=== PATIENT | male | born 1985 | race Hispanic/Latino ===

== ENCOUNTER 2017-07-30 06:46 | Emergency (ER) | payer OTHER ==
[~2017-07-30] VITALS: Ht 167.6 cm; Wt 90.7 kg
== END 2017-07-30 07:36 | disposition short-term general hospital (02) ==
LOC: ER 06:46
DX: R69 Illness, unspecified (principal)

== ENCOUNTER → 2017-08-05 | Outpatient (CLI) | payer OTHER ==
--- NOTE | 2017-08-05 12:38 | Diagnostic Imaging Report ---
PROCEDURE:X-RAY ABDOMEN - KUB COMPARISON:04/23/17 INDICATIONS:CALCULI OF KIDNEY FINDINGS: There is a non-obstructed bowel-gas pattern. 3 mm hyperdensity overlying the right renal shadow. There are no acute osseous abnormalities. The lung bases are clear. CONCLUSION: 3 mm hyperdensity overlying the right renal shadow, could represent a renal calculus. Non obstructive bowel gas pattern. Dictated by: Gerardo Santizo M.D. on 08/05/2017 at 12:46 Electronically approved by: Gerardo Santizo M.D. on 08/05/2017 at 12:46
== END ==
LOC: RAD 11:49
PROVIDERS: ATTEND Urology
DX: N20.0 Calculus of kidney (principal)
CPT/HCPCS: 74000

== ENCOUNTER → 2017-11-15 | Outpatient (CLI) | payer OTHER ==
--- NOTE | 2017-11-15 13:09 | Diagnostic Imaging Report ---
PROCEDURE:X-RAY ABDOMEN - KUB COMPARISON:Patients [facility], DX, ABDOMEN-1VIEW (KUB), 08/05/2017, 11:50. INDICATIONS:CALCULUS OF THE KIDNEY FINDINGS: Bowel: Bowel gas pattern is normal. No dilated bowel loops. Calcifications: Punctate calcification over the right renal shadow measures about 3 mm and is stable. No calcifications over the left renal shadow or along expected course of the ureters. No pelvic phleboliths. Bones: Normal. CONCLUSION: Stable calcification over the right renal shadow. No calcifications elsewhere. Dictated by: Sivakumar Koroma M.D. on 11/15/2017 at 13:10 Electronically approved by: Sivakumar Koroma M.D. on 11/15/2017 at 13:10
== END ==
LOC: RAD 09:48
PROVIDERS: ATTEND Urology
DX: N20.0 Calculus of kidney (principal)
CPT/HCPCS: 74018

== ENCOUNTER 2017-12-09 17:42 | Emergency (ER) | payer OTHER ==
[~2017-12-09] VITALS: Ht 170.2 cm; Wt 103.9 kg
--- OUTSIDE RECORDS SUMMARY | 2017-12-09 17:45 | XMS REPORT ---
Author Author [facility] Address Unknown Phone Unavailable Care Team Providers Care Physical Therapy Aide Name Role Phone MEREDITH SIFUENTES Unavailable Unavailable Problems This patient has no known problems. Allergies, Adverse Reactions, Alerts This patient has no known allergies or adverse reactions. Medications This patient has no known medications. Results Test Description Test Time Test Comments Text Results Atomic Results Result Comments ABDOMEN-1VIEW (KUB) [facility] [address] [address] Patient Name: TIANNA CHOWDHURY MR #: [id number] : 1985 Age/Sex: 32/M Req #: [id number] Adm Physician: Ordered by: MEREDITH SIFUENTES MD Report #: [id number] Location: [facility] Room/Bed: Procedure: [id number] [id number] DX/ABDOMEN-1VIEW (KUB) Exam Date: 11/15/17 Exam Time: 0940 REPORT STATUS: Signed PROCEDURE: X-RAY ABDOMEN - KUB COMPARISON: [facility], , ABDOMEN-1VIEW (KUB), 2016, 11:50. INDICATIONS: CALCULUS OF THE KIDNEY FINDINGS: Bowel: Bowel gas pattern is normal. No dilated bowel loops. Calcifications: Punctate calcification over the right renal shadow measures about 3 mm and is stable. No calcifications over the left renal shadow or along expected course of the ureters. No pelvic phleboliths. Bones: Normal. CONCLUSION: Stable calcification over the right renal shadow. No calcifications elsewhere. Dictated by: Praveen Koroma M.D. on 11/15/2017 at 13:10 Electronically approved by: Praveen Koroma M.D. on 11/15/2017 at 13:10 Dictated By: PRAVEEN KOROMA MD 1310 Transcribed By : ERLINDA on 11/15/17 1310 COPY TO: MEREDITH SIFUENTES MD ABDOMEN-1VIEW (KUB) [place] [address] Patient Name: TIANNA CHOWDHURY MR #: [id number] : 1985 Age/Sex: 32/M Req #: [id number] Adm Physician: Ordered by: MEREDITH SIFUENTES MD Report #: [id number] Location: [facility] Room/Bed: Procedure: [id number] [id number] DX/ABDOMEN-1VIEW (KUB) Exam Date: 08/05/17 Exam Time: 1205 REPORT STATUS: Signed PROCEDURE: X-RAY ABDOMEN - KUB COMPARISON: 04/23/17 INDICATIONS: CALCULI OF KIDNEY FINDINGS: There is a non-obstructed bowel-gas pattern. 3 mm hyperdensity overlying the right renal shadow. There are no acute osseous abnormalities. The lung bases are clear. CONCLUSION: 3 mm hyperdensity overlying the right renal shadow, could represent a renal calculus. Non obstructive bowel gas pattern. Dictated by: Gerardo Patel M.D. on 08/05/2017 at 12:46 Electronically approved by: Gerardo Patel M.D. on 08/05/2017 at 12:46 Dictated By: GERARDO PATEL MD 1246 Transcribed By: ERLINDA on 08/05/17 1246 COPY TO: MEREDITH SIFUENTES MD ABDOMEN-1VIEW (KUB) [place] [address] Patient Name: TIANNA CHOWDHURY MR #: [id number] : 1985 Age/Sex: 32/M Req # : [id number] Adm Physician: Ordered by: MEREDITH SIFUENTES MD Report #: [id number] Location: [facility] Room/Bed: Procedure: [id number] DX/ABDOMEN-1VIEW (KUB) Exam Date: 04/23/17 Exam Time : 1135 REPORT STATUS: Signed EXAM: Abdomen, one view INDICATION: Pain. COMPARISON: Abdomen one view 01/14/2017. CT abdomen and pelvis 2010. FINDINGS: LINES: None. Bowel: No air fluid levels.. No pneumoperitoneum.. Moderate amount of retained feces and air are noted in the colon and rectum. No calcifications project over the left renal shadow , expected course of the ureters bilaterally, and bladder. Punctate calculus projects over the interpolar region of the right kidney. Soft tissues: Normal. Bones: No acute osseous abnormality. Degenerative changes of the lumbar spine and pelvis. Impression: No acute radiographic abnormality. Right nephrolithiasis. Signed by: Dr. Silvestre Sorensen M.D. on 04/23 12:10 PM Dictated By: SILVESTRE SORENSEN MD 1210 Transcribed By: BAILEY on 04/23/17 1210 COPY TO: MEREDITH SIFUENTES MD
[2017-12-09 22:30] VITALS: BP 151/106
--- NOTE | 2017-12-10 12:31 | Cardiology Report ---
DATE OF STUDY: December 09, 2017 DOPPLER SCAN OF THE LOWER EXTREMITY VEINS The lower extremity veins were interrogated using Duplex scanning method. The veins were compressible. There was no definite deep venous thrombosis. CONCLUSION: No definite deep venous thrombosis identified in the lower extremity veins bilaterally. Job#: [id number]
== END 2017-12-09 22:34 | disposition home or self-care (01) ==
LOC: ER 17:42
DX: M79.89 Other specified soft tissue disorders (principal)
CPT/HCPCS: 93970; 99283

== ENCOUNTER → 2018-03-18 | Outpatient (CLI) | payer OTHER ==
--- NOTE | 2018-03-18 11:19 | Diagnostic Imaging Report ---
Abdomen/KUB INDICATION: Renal stone follow-up COMPARISON: Abdomen x-ray 04/23/2017. FINDINGS: Medical Devices: None. Bowel: Normal bowel gas pattern. No dilated bowel loops. No significant burden of stool in the large bowel. Calcifications: None over the renal shadows or along the expected course of the ureters. Multiple bowel loops overlie the right renal shadow. Organomegaly: None Bones: Unremarkable IMPRESSION: No radiographic evidence of calculus. Unremarkable bowel gas pattern. Signed by: Dr. Sivakumar Koroma MD on 03/18/2018 11:16 AM
== END ==
LOC: RAD 10:35
PROVIDERS: ATTEND Urology
DX: N20.0 Calculus of kidney (principal)
CPT/HCPCS: 74018

== ENCOUNTER → 2018-09-18 | Outpatient (CLI) | payer OTHER ==
--- NOTE | 2018-09-18 10:09 | Diagnostic Imaging Report ---
Abdominal radiographs; KUB - two views INDICATION: Renal calculus COMPARISON: Abdomen x-ray 03/18/2018. FINDINGS: There is a nonobstructive bowel gas pattern. There is no free intraperitoneal air. Bowel gas partially obscures visualization of the kidneys. No evidence of calcifications overlying the kidneys or expected location of the ureters. The bony structures are unremarkable. IMPRESSION: No radiographic evidence of urinary stone. Signed by: Dr. Lola Alonzo MD on 09/18/2018 10:05 AM
== END ==
LOC: RAD 09:15
PROVIDERS: ATTEND Urology
DX: N20.0 Calculus of kidney (principal)
CPT/HCPCS: 74018

== ENCOUNTER → 2019-03-09 | Outpatient (CLI) | payer OTHER ==
--- NOTE | 2019-03-09 15:02 | Diagnostic Imaging Report ---
Exam: KUB - 2 views Clinical History: Renal calculus Comparison: Multiple prior KUBs, most recently of 09/18/2018 Findings: No calcifications overlying the renal silhouettes to suggest radiograph only apparent renal calculi. The osseous structures appear unremarkable. No free air. Nonobstructive bowel gas pattern. Impression: No acute radiographic abnormality. Signed by: Keegan Tavarez MD on 03/09/2019 2:58 PM
== END ==
LOC: RAD 14:17
PROVIDERS: ATTEND Urology
DX: N20.0 Calculus of kidney (principal)
CPT/HCPCS: 74018